=== PATIENT | male | born 2000 | race Two or more races ===

== ENCOUNTER 2022-11-06 22:42 | Emergency (ER) | payer SELFPAY ==
[~2022-11-06] VITALS: Ht 170.2 cm; Wt 72.7 kg
[2022-11-06 23:07] VITALS: BP 130/75
== END 2022-11-06 23:26 ==
LOC: ER 22:43
DX: V89.2XXA Person injured in unspecified motor-vehicle accident, traffic, initial encounter; Y93.89 Activity, other specified; Y92.89 Other specified places as the place of occurrence of the external cause; Y99.8 Other external cause status
CPT/HCPCS: 99283